=== PATIENT | male | born 2000 | race Caucasian/White ===

== ENCOUNTER 2023-06-19 21:19 | Emergency (ER) | payer MEDICAID, SELFPAY ==
[2023-06-19 21:21] VITALS: BP 139/74; PULSE 82; RESP 16; TEMP 36.6; O2SAT 98; BMI 32.5
--- NOTE | 2023-06-19 21:30 | CT_ITS ---
The [address] [address] Patient Name: ABIEL VILLAGRAN MRN: [id number] date: 2000 Sex: M Assigned Patient Location: ER Current Patient Location: .[facility] Accession/Order Number: [id number] Exam Date: 06/19/2023 21:41 Report Date: 06/19/2023 22:41 At the request of: VIDA JONES Procedure: CT abdomen pelvis wo con EXAM: CT abdomen pelvis wo con HISTORY: fall, flank pain COMPARISON: None. TECHNIQUE: Unenhanced CT imaging of the abdomen and pelvis. This CT exam was performed using one or more of the following dose reduction techniques: Automated exposure control, adjustment of the mA and/or KV according to patient size, or use of iterative reconstruction technique. Unless otherwise stated, incidental findings do not require dedicated follow-up imaging. FINDINGS: There is bibasilar atelectasis. The heart size is normal. The liver, spleen, pancreas, adrenal glands, and kidneys have a grossly normal noncontrast enhanced appearance. The gallbladder is contracted. The bowel is unobstructed. The appendix is normal. There is no free fluid or free air within the abdomen or pelvis. The bladder is decompressed. The hips are appropriately located bilaterally. The bony pelvis is intact. The lumbar vertebra are normal in height and alignment. CT/CT abdomen pelvis wo con IMPRESSION: No acute abnormality. Electronically authenticated by: PATRICIA GIBBONS Date: 06/19/2023 22:41
--- NOTE | 2023-06-19 21:33 | ED.FALL1 ---
HPI - Fall General Chief Complaint: Fall Stated Complaint: FALL Time Seen by Provider: 06/19/23 21:21 Source: patient Mode of arrival: ambulance Limitations: no limitations History of Present Illness HPI Narrative: Patient is staying [place] [facility]. he was by the pool and slipped and fell, landing onto his left side. He got up, took some steps and then fell again, once again landing on the left side. This occurred around 8pm. He did not take anything for pain. No head injury, LOC or injury to the neck or back. He called 911 to bring him to the ED for evaluation. Related Data Previous Rx's Medication Instructions Recorded ketorolac 10 mg tablet 10 mg PO Q8H PRN pain 5 days #15 06/19/23 tabs Allergies Allergy/AdvReac Type Severity Reaction Status Date / Time azithromycin [From Zithromax] Allergy Hives Verified 06/19/23 21:25 PFSH PFSH Social History Smoking status: Never smoker Exam Narrative Exam Narrative: Nurses note and vital signs reviewed and patient is not hypoxic. afebrile General: The patient appears well and in no apparent distress. Patient is resting comfortably on cart. GCS = 15. Skin: Warm, dry, no pallor noted. Head: Normocephalic, atraumatic Neck: Supple, trachea mid-line, no tenderness, no lymphadenopathy. Full ROM and no cervical spinal tenderness. The patient has no step-offs or crepitus noted Eyes: PERRLA, EOMI ENT: No facial injury Cardiovascular: Regular Rate and Rhythm Respiratory: Patient is in no distress, no accessory muscle use, lungs are clear to auscultation, no wheezing, rales or rhonchi Chest Wall: no tenderness, no flail chest, contusion, abrasion, or signs of trauma. Back: No midline vertebral thoracic or lumbar tenderness to palpation. Negative straight leg raise bilaterally. he has some tenderness along the left flank without erythema, ecchymosis or swelling. Musculoskeletal: no sign of long bone fracture. Moves all four extremities in all modalities with 5/5 strength. GI: Normal bowel sounds, no tenderness to palpation, no masses appreciated. No rebound, guarding, or rigidity noted. Neurological: A&O x4, normal equal sales office manager strength, normal finger to nose, normal speech, normal coordination, normal motor, normal sensory. Psychiatric: Cooperative Constitutional Vital Signs, click to edit/add: Last Vital Signs Temp 97.9 F 06/19/23 21:21 Pulse 82 06/19/23 21:21 Resp 16 06/19/23 21:21 BP 139/74 06/19/23 21:21 Pulse Ox 98 06/19/23 21:21 O2 Del Method Room Air 06/19/23 21:21 Course Vital Signs Vital signs: Vital Signs Temperature 97.9 F 06/19/23 21:21 Pulse Rate 82 06/19/23 21:21 Respiratory Rate 16 06/19/23 21:21 Blood Pressure 139/74 06/19/23 21:21 Pulse Oximetry 98 06/19/23 21:21 Oxygen Delivery Method Room Air 06/19/23 21:21 Temperature 97.9 F 06/19/23 21:21 Pulse Rate 82 06/19/23 21:21 Respiratory Rate 16 06/19/23 21:21 Blood Pressure 139/74 06/19/23 21:21 Pulse Oximetry 98 06/19/23 21:21 Oxygen Delivery Method Room Air 06/19/23 21:21 MDM - Fall MDM Narrative Medical decision making narrative: Urine obtained and sent for testing. CT abd & pelvis obtained. Patient was given oral Toradol and Robaxin for pain. No blood on UA. CT a/p = no acute abnormality Patient informed of results and given reassurance. Discharged home with prescription for several more days of toradol. PCP follow up recommended. Lab Data Attestation: I reviewed the patient's lab results. Labs: Lab Results 06/19/23 Range/Units 21:30 Urine Color Lt. yellow (YELLOW) Urine Clarity Clear (CLEAR) Urine pH 6.5 (5.0-9.0) Ur Specific [place] 1.025 (1.005-1.025) Urine Protein Negative (NEG/TRACE) mg/dL Urine Glucose (UA) Negative (NEGATIVE) mg/dL Urine Ketones Negative (NEGATIVE) mg/dL Urine Occult Blood Negative (NEGATIVE) Urine Nitrite Negative (NEGATIVE) Urine Bilirubin Negative (NEGATIVE) Urine Urobilinogen 1.0 (0.2-1.0) EU/dL Ur Leukocyte Esterase Negative (NEGATIVE) Imaging Data CT scan - abdomen: Radiologist's impression: ITS Impressions Abdomen/Pelvis CT 06/19/23 21:30 IMPRESSION: No acute abnormality. Electronically authenticated by: PATRICIA GIBBONS Date: 06/19/2023 22:41 Discharge Plan Discharge Chief Complaint: Fall Clinical Impression: Contusion of flank and back Patient Disposition: Home, Self-Care Time of Disposition Decision: 22:47 Prescriptions / Home Meds: New ketorolac 10 mg tablet 10 mg PO Q8H PRN (Reason: pain) 5 Days Qty: 15 0RF Instructions: Contusion in Adults (ED), Flank Pain (ED) Referrals: Physician,Non-Staff, MD [Primary Care Provider] - 1 week Stand Alone Forms: Portal Instructions
[2023-06-19 21:39] LABS: Bilirubin Urine NEGATIVE (NEGATIVE); Blood Urine NEGATIVE (NEGATIVE); Clarity Urine CLEAR (CLEAR); Color Urine LT. YELLOW (YELLOW); Glucose Urine UA NEGATIVE (NEGATIVE); Ketones Urine NEGATIVE (NEGATIVE); Leukocyte Esterase Urine NEGATIVE (NEGATIVE); Nitrite Urine NEGATIVE (NEGATIVE); Protein Urine NEGATIVE (NEG/TRACE); Specific Gravity Urine 1.025 (1.005-1.025); Urine Microscopic Indicated NO; pH Urine 6.5 (5.0-9.0)
[2023-06-19] MEDS: KETOROLAC TROMETHAMINE 10 MG TABLET PO (21:51)
[2023-06-19] MEDS: METHOCARBAMOL 500 MG TABLET PO (21:52)
== END 2023-06-19 23:00 | disposition home or self-care (01) ==
PROVIDERS: Emergency Provider Emergency Medicine
DX: S30.0XXA Contusion of lower back and pelvis, initial encounter (principal); S30.1XXA Contusion of abdominal wall, initial encounter; W01.0XXA Fall on same level from slipping, tripping and stumbling without subsequent striking against object, initial encounter
CPT/HCPCS: 74176; 81003; 99284